=== PATIENT | female | born 1980 | race Caucasian/White ===

== ENCOUNTER 2017-06-13 08:30 | Emergency (ER) | payer OTHER ==
[2017-06-13 08:43] VITALS: BP 109/64
[2017-06-13] MEDS ORDERED: cefTRIAXone VIAL(*) 1,000 MG VIAL IM ONE (08:48)
[2017-06-13] MEDS ORDERED: Lidocaine 2% PF * 5 ML VIAL INJ ONE (08:48)
[2017-06-13] MEDS ORDERED: Tetan/Diph/Pertus SYR(Tdap)* 0.5 ML SYR(BOOSTRIX) use SYR IM ONE (08:49)
--- NOTE | 2017-06-13 08:55 | UC ---
Skin Complaint HPI - HPI Summary HPI Summary: She got a rope burn from a dog leash a few days ago and on the left there is now surrounding swelling and tenderness. she has a hx of abcess. no fever or chills or dm. - History of Current Complaint Chief Complaint: UCLowerExtremity Time Seen by Provider: 06/13/17 08:44 Stated Complaint: LEFT LEG IRRITATION Hx Obtained From: Patient Hx Last Menstrual Period: 05/29/17 Onset/Duration: Gradual Onset Skin Exposure Onset/Duration: Days Ago Onset Severity: Mild Current Severity: Moderate Location: Discrete, Other - posterior left calf. Character: Raised, Painful Aggravating: Touch Associated Signs & Symptoms: Positive: Tenderness. Negative: Drainage, Red Streaks - Allergy/Home Medications Allergies/Adverse Reactions: Allergies Allergy/AdvReac Type Severity Reaction Status Date / Time No Known Allergies Allergy Verified 06/13/17 08:34 Home Medications: Home Medications Cephalexin CAP* [Keflex CAP*] 500 mg PO TID 06/13/17 [History Confirmed 06/13/17 ] Review of Systems Skin: Other - tenderness around the wound. All Other Systems Reviewed And Are Negative: Yes PMH/Surg Hx/FS Hx/Imm Hx Previously Healthy: No - prior abcess. neg hx of mrsa. - Surgical History Surgical History: Yes Surgery Procedure, Year, and Place: 3 c-sections, esure implants, gallbladder removal - Family History Known Family History: Positive: Other - no known fh of skin infections. - Social History Alcohol Use: None Substance Use Type: None Smoking Status (MU): Heavy Every Day Tobacco Smoker Type: Cigarettes Amount Used/How Often: 1/2 pack per day Length of Time of Smoking/Using Tobacco: 24 yrs Household Exposure Type: Cigarettes Physical Exam Triage Information Reviewed: Yes Appearance: Well-Appearing, No Pain Distress, Well-Nourished Vital Signs: Initial Vital Signs Temp 98 F 06/13/17 08:37 Pulse 56 06/13/17 08:37 Resp 16 06/13/17 08:37 BP 109/64 06/13/17 08:37 Pulse Ox 99 06/13/17 08:37 Vital Signs Reviewed: Yes Eye Exam: Normal ENT Exam: Normal Neck exam: Normal Respiratory Exam: Normal Cardiovascular Exam: Normal Abdominal Exam: Normal Musculoskeletal: Positive: Edema @ - left posterior calf around the wound. the wound is a shallow eschar about 2inches by one inch. Neurological Exam: Normal Psychological Exam: Normal Skin Exam: Other - some surrounding pinkness around the wound. no streaking. no fluctuance. Course/Dx - Course Course Of Treatment: we had a long conversation regarding this localized cellulitis. Carmen agrees to have this looked again in the next 1-2 days back here. she was told that this may worsen in which case she may need to be admitted for IV antibiotics but we will aggressively manage with IM rocephin and po antibiotics. - Differential Diagnoses - Skin Complaint Differential Diagnoses: Abscess, Cellulitis - Diagnoses Provider Diagnoses: left posterior calf cellulitis. Discharge - Discharge Plan Condition: Good Disposition: HOME Prescriptions: Dicloxacillin CAP* [Dynapen CAP*] 500 mg PO QID #40 cap Patient Education Materials: Cellulitis (ED) Referrals: Erik Hernandes MD [Primary Care Provider] - 2 Days
[2017-06-13] MEDS ORDERED: Lidocaine 1% INJ* 10 MG/ML 30 ML SDV INJ ONE (08:57)
[2017-06-13] MEDS ORDERED: Lidocaine 1% MPF* 2 ML VIAL INJ ONE (09:10)
== END 2017-06-13 09:48 | disposition home or self-care (01) ==
LOC: UCCORT 08:30
DX: S80.812A Abrasion, left lower leg, initial encounter (principal); L03.116 Cellulitis of left lower limb; X58.XXXA Exposure to other specified factors, initial encounter; Y93.9 Activity, unspecified; Y92.9 Unspecified place or not applicable; F17.210 Nicotine dependence, cigarettes, uncomplicated; Z23 Encounter for immunization
CPT/HCPCS: 90471; 90715; 96372; 99212; G0463; J0696; J2001

== ENCOUNTER 2017-06-15 11:34 | Emergency (ER) | payer OTHER ==
[2017-06-15 12:11] VITALS: BP 121/69
--- NOTE | 2017-06-15 12:30 | UC ---
HPI Wound/Suture Re-check - HPI Summary HPI Summary: about 9 days ago sustained a lease burn to both lower legs seen her 2 days ago and started on antibiotics told to return for recheck no change - History Of Current Complaint Chief Complaint: UCSkin Stated Complaint: RECHECK LEG Time Seen by Provider: 06/15/17 11:56 Hx Obtained From: Patient Hx Last Menstrual Period: 05/28/17 Onset/Duration: Sudden Onset Severity: Moderate Pain Intensity: 4 Pain Scale Used: 0-10 Numeric - Allergies/Home Medications Allergies/Adverse Reactions: Allergies Allergy/AdvReac Type Severity Reaction Status Date / Time No Known Allergies Allergy Verified 06/15/17 12:03 PMH/Surg Hx/FS Hx/Imm Hx Previously Healthy: Yes Endocrine History: Hypothyroidism GI/ History: Gastroesophageal Reflux - Surgical History Surgical History: Yes Surgery Procedure, Year, and Place: 3 c-sections, esure implants, gallbladder removal - Family History Known Family History: Positive: Hypertension, Other - no known fh of skin infections. - Social History Alcohol Use: None Substance Use Type: None Smoking Status (MU): Heavy Every Day Tobacco Smoker Type: Cigarettes Amount Used/How Often: 1/2 pack per day Length of Time of Smoking/Using Tobacco: 24 yrs Household Exposure Type: Cigarettes - Immunization History Most Recent Tetanus Shot: 06/13/17 Review of Systems Constitutional: Negative Skin: Negative Eyes: Negative ENT: Negative Respiratory: Negative Cardiovascular: Negative Gastrointestinal: Negative Genitourinary: Negative Motor: Negative Neurovascular: Negative Musculoskeletal: Negative Neurological: Negative Psychological: Negative All Other Systems Reviewed And Are Negative: Yes Physical Exam Triage Information Reviewed: Yes Appearance: Well-Appearing, No Pain Distress, Well-Nourished Vital Signs: Initial Vital Signs Temp 97.8 F 06/15/17 12:05 Pulse 52 06/15/17 12:05 Resp 17 06/15/17 12:05 BP 121/69 06/15/17 12:05 Pulse Ox 99 06/15/17 12:05 Vital Signs Reviewed: Yes ENT: Positive: Hearing grossly normal. Negative: Nasal congestion, Nasal drainage Neck: Positive: Nontender, No Lymphadenopathy Respiratory: Positive: Lungs clear, Normal breath sounds, No respiratory distress, No accessory muscle use Cardiovascular: Positive: RRR, No Murmur Neurological: Positive: Alert Psychological Exam: Normal Skin Exam: Other - left lower ext eschar with surrounding narrow rim erthema no pronouced swelling no flutuance Course/Dx - Differential Dx - Laceration/Wound Provider Diagnoses: recheck friction hernandez/cellulitis Discharge - Discharge Plan Condition: Stable Disposition: HOME Prescriptions: Mupirocin 2% OINT* [Bactroban 2 % Oint*] 1 applic TOPICAL TID #1 tube Patient Education Materials: Cellulitis (ED) Referrals: Erik Hernandes MD [Primary Care Provider] - Additional Instructions: I suggest you soak your left foot in warm soapy water for 10-15 minutes 3x day gently dry apply bactroban to area that was burned by lease continue oral antibiotic recheck in 3 days sooner if symptoms worsen rest and elevate
== END 2017-06-15 12:38 | disposition home or self-care (01) ==
LOC: UCCORT 11:34
DX: T24.002D Burn of unspecified degree of unspecified site of left lower limb, except ankle and foot, subsequent encounter (principal); T24.001D Burn of unspecified degree of unspecified site of right lower limb, except ankle and foot, subsequent encounter; T79.8XXD Other early complications of trauma, subsequent encounter; X12.XXXD Contact with other hot fluids, subsequent encounter; E03.9 Hypothyroidism, unspecified; K21.9 Gastro-esophageal reflux disease without esophagitis; Z90.49 Acquired absence of other specified parts of digestive tract; F17.210 Nicotine dependence, cigarettes, uncomplicated
CPT/HCPCS: 99212; G0463

== ENCOUNTER 2017-06-18 09:31 | Emergency (ER) | payer OTHER ==
--- NOTE | 2017-06-18 11:52 | UC ---
Skin Complaint HPI - HPI Summary HPI Summary: 37 y/o female presents to the urgent care c/o her wound in her LF ankle is not healing. Pt states she got a the wound with the rope of her dog's leash about 1 week ago. She was seen here at the urgent care on 06/13/2017 and 06/15/2017. She Rx Keflex and dicloxacillin. She just finished the antibiotic and her wound still red, painful and swollen with some yellowish drainage. PT denies red streaks, fever, SOB, chest pain, N/V/d. - History of Current Complaint Chief Complaint: UCWounds Time Seen by Provider: 06/18/17 11:30 Stated Complaint: LEFT ANKLE PAIN Hx Obtained From: Patient Hx Last Menstrual Period: week may ?: Yes Onset/Duration: Gradual Onset, Lasting Days, Still Present Skin Exposure Onset/Duration: Weeks Ago Timing: Constant Onset Severity: Severe Current Severity: Moderate Pain Intensity: 4 Pain Scale Used: 0-10 Numeric Location: Discrete - wound above LF ankle Character: Swelling, Pain, Redness Aggravating: Touch, Other - standing long period of time Alleviating: OTC Meds Associated Signs & Symptoms: Positive: Tenderness. Negative: Nausea, Vomiting, Numbness, Fever, Chills, Drainage, Red Streaks, Joint Swelling Related History: Trauma - with a dog rope - Allergy/Home Medications Allergies/Adverse Reactions: Allergies Allergy/AdvReac Type Severity Reaction Status Date / Time No Known Allergies Allergy Verified 06/18/17 09:48 Review of Systems Constitutional: Negative Skin: Rash - left ankle wound w/ redness and yellowish drainage, not healing Eyes: Negative ENT: Negative Respiratory: Negative Cardiovascular: Negative Gastrointestinal: Negative Genitourinary: Negative Motor: Negative Neurovascular: Negative Musculoskeletal: Negative Neurological: Negative Psychological: Negative All Other Systems Reviewed And Are Negative: Yes PMH/Surg Hx/FS Hx/Imm Hx Previously Healthy: Yes Endocrine History: Hypothyroidism - Surgical History Surgical History: Yes Surgery Procedure, Year, and Place: 3 c-sections, esure implants, gallbladder removal - Family History Known Family History: Positive: Hypertension, Diabetes - Social History Occupation: Employed Full-time Lives: With Family Alcohol Use: None Substance Use Type: None Smoking Status (MU): Heavy Every Day Tobacco Smoker Type: Cigarettes Amount Used/How Often: 1/2 pack per day Length of Time of Smoking/Using Tobacco: 24 yrs Household Exposure Type: Cigarettes - Immunization History Most Recent Tetanus Shot: 06/13/17 Physical Exam Triage Information Reviewed: Yes Appearance: Well-Appearing, No Pain Distress, Well-Nourished, Obese Vital Signs: Initial Vital Signs Temp 97.6 F 06/18/17 09:49 Pulse 58 06/18/17 09:49 Resp 16 06/18/17 09:49 BP 100/67 06/18/17 09:49 Pulse Ox 99 06/18/17 09:49 Vital Signs Reviewed: Yes Eye Exam: Normal Eyes: Positive: Conjunctiva Clear - PERRLA, EOMI, ENT Exam: Normal ENT: Positive: Normal ENT inspection, Hearing grossly normal, Pharynx normal, TMs normal Dental Exam: Normal Neck exam: Normal Neck: Positive: Supple, Nontender, No Lymphadenopathy Respiratory Exam: Normal Respiratory: Positive: Chest non-tender, Lungs clear, Normal breath sounds, No respiratory distress Cardiovascular Exam: Normal Cardiovascular: Positive: RRR, No Murmur, Pulses Normal, Brisk Capillary Refill Abdominal Exam: Normal Abdomen Description: Positive: Nontender, No Organomegaly, Soft. Negative: CVA Tenderness (R), CVA Tenderness (L) Bowel Sounds: Positive: Present Musculoskeletal Exam: Normal Musculoskeletal: Positive: Strength Intact, ROM Intact, No Edema Neurological Exam: Normal Psychological Exam: Normal Skin: Positive: significant lesion(s) - lf lower extremity with an eschar above the posterior aspect of LF ankle. , mild erythema around and mild yellosish drainage, tender to palpation.FROm for FL ankle, positive pulses, sensation intact and brisk capillary refill. RT lower leg extremity wound healing well Course/Dx - Course Course Of Treatment: 37 y/o female presents to the urgent care c/o her wound in her LF ankle is not healing. Pt states she got a the wound with the rope of her dog's leash about 1 week ago. She was seen here at the urgent care on 2016 and 06/15/2017. She Rx Keflex and dicloxacillin. She just finished the antibiotic and her wound still red, painful and swollen with some yellowish drainage. PT denies red streaks, fever, SOB, chest pain, N/V/d.HX obtained. PT' s wound still draining purulant discharge. Wound sample taken and sent to lab for wound culture. Pt Rx Bactrim PO and Pt advised to keep wound clean and dry and continue placing Mupurocin topical cream. keep leg elevated and avoid stading for long eriods of time. Pt understood and agreed. Left the clinic ambulating. - Differential Diagnoses - Skin Complaint Differential Diagnoses: Cellulitis, Local Allergic Reaction, Lymphadenitis, MRSA , Urticaria - Diagnoses Provider Diagnoses: 1- Left lower leg with cellulitis Discharge - Discharge Plan Condition: Stable Disposition: HOME Prescriptions: Sulfamethox/Trimethoprim DS* [Bactrim DS 800/160 TAB*] 1 tab PO BID #20 tab Patient Education Materials: Cellulitis (ED), Acute Wound Care (ED) Referrals: Erik Hernandes MD [Primary Care Provider] - If Needed Additional Instructions: 1- Please take full course of antibiotic to avoid resistance. Continue taking Ibuprofen PO q6-8hrs to alleviate swelling. Elevate your leg at night time. 2- Wound culture sent to lab if anything abnormal, you will receive a call from us 3- If symptoms do not improve or worsen please f/u with your PCP or return to the urgent care for further treatment. .
[2017-06-18 11:58] VITALS: BP 111/62
== END 2017-06-18 11:58 | disposition home or self-care (01) ==
LOC: UCCORT 09:31
DX: S91.002S Unspecified open wound, left ankle, sequela (principal); L03.116 Cellulitis of left lower limb; X58.XXXS Exposure to other specified factors, sequela; E03.9 Hypothyroidism, unspecified; Z90.49 Acquired absence of other specified parts of digestive tract; E66.9 Obesity, unspecified; F17.210 Nicotine dependence, cigarettes, uncomplicated
CPT/HCPCS: 87070; 87205; 99212; G0463

== ENCOUNTER 2019-02-22 20:55 | Emergency (ER) | payer OTHER ==
[2019-02-22 21:12] VITALS: BP 128/69
--- NOTE | 2019-02-22 21:35 | UC ---
Back Pain HPI - HPI Summary HPI Summary: 38 y/o female presents to the urgent care c/o slipped and fell down stairs at home 02/17/19, injured tailbone. Pt though pain was going to improved by taking Ibuprofen PO 600mg, but it worsen yesterday. Pain is 8/10 sharp specially at the tailbone when sitting or bending. She has has a normal BM and urinating well. Pt reports Hx of DDD. Last does of Ibuprofen PO taken about 3 hrs ago. Pt denies fever, SOB, chest pain, calf pain, saddle anesthesia, urinary or fecal incontinence, flank pain, urinary symptoms, numbness or tingling sensation over the lower extremities, abdominal pain, N/V/D. She has mild B/l lower back pain w / muscle spasm. LMP: 01/27/2019 w/ regular menstrual cycles and has Essure implant for many years. - History of Current Complaint Chief Complaint: UCGeneralIllness Stated Complaint: TAILBONE INJURY Time Seen by Provider: 02/22/19 21:34 Hx Obtained From: Patient Hx Last Menstrual Period: 01/27/19 has essure ?: No - has Essure implants Onset/Duration: Gradual Onset, Lasting Days - 6 days ago she fell on her back an injured her tail bone, pain since then, Still Present, Worse Since - yesterday Timing: Constant, Lasting Days - 6 days Severity Initially: Moderate Severity Currently: Moderate Pain Intensity: 8 Pain Scale Used: 0-10 Numeric Back Pain: Is Discrete @ - lower bacn and tail bone pain Character: Sharp, Spasmodic Aggravating Factor(s): Movement, Bending, Other - sitting Alleviating Factor(s): Rest, OTC Meds - Ibuprofen 600mg PO Associated Signs And Symptoms: Positive: Negative. Negative: Swelling, Redness , Bruising, Weakness, Numbness, Tingling, Abdominal Pain, Flank Pain, Bladder Incontinence, Bowel Incontinence, Weight Loss, Pain with Weight Bearing - Risk Factors AAA Risk Factors: Negative TAD Risk Factors: Negative Cauda Equina Risk Factors: Negative Epidural Abscess Risk Factors: Negative - Allergies/Home Medications Allergies/Adverse Reactions: Allergies Allergy/AdvReac Type Severity Reaction Status Date / Time No Known Allergies Allergy Verified 02/22/19 21:12 PMH/Surg Hx/FS Hx/Imm Hx Previously Healthy: Yes Endocrine History: Hypothyroidism GI/ History: Gastroesophageal Reflux Other GI/ History: Gastroperesis Other Neurological History: Degenerative Disc disease - Surgical History Surgical History: Yes Surgery Procedure, Year, and Place: 3 c-sections, esure implants, gallbladder removal - Family History Known Family History: Positive: Hypertension, Diabetes, Other - no known fh of skin infections. - Social History Occupation: Employed Full-time Lives: With Family Alcohol Use: None Substance Use Type: None Smoking Status (MU): Heavy Every Day Tobacco Smoker Type: Cigarettes Amount Used/How Often: 1/2 pack per day Length of Time of Smoking/Using Tobacco: 24 yrs Household Exposure Type: Cigarettes - Immunization History Most Recent Tetanus Shot: 06/13/17 Review of Systems All Other Systems Reviewed And Are Negative: Yes Constitutional: Positive: Negative Skin: Positive: Negative Eyes: Positive: Negative ENT: Positive: Negative Respiratory: Positive: Negative Cardiovascular: Positive: Negative Gastrointestinal: Positive: Negative Genitourinary: Positive: Negative Motor: Positive: Negative Neurovascular: Positive: Negative Musculoskeletal: Positive: Decreased ROM - lower back, Other: - lower back pain and tail bone pain s/p fall injury Neurological: Positive: Negative Psychological: Positive: Negative Is Patient Immunocompromised?: No Physical Exam - Summary Physical Exam Summary: Vital Signs Reviewed: Yes Appearance: Well-Appearing, Well-Nourished, obese female sitting in the examining table w/o any apparent distress. Eyes: Positive: Conjunctiva Clear - PERRLA, EOMI. ENT: Positive: Normal ENT inspection, Hearing grossly normal, Pharynx normal, TMs normal, Uvula midline Neck: Positive: Supple, Nontender, No Lymphadenopathy Respiratory: Positive: Chest non-tender, Lungs clear, Normal breath sounds, No respiratory distress Cardiovascular: Positive: RRR, No Murmur, Pulses Normal, Brisk Capillary Refill Abdomen Description: Positive: Nontender, No Organomegaly, Soft. Negative: CVA Tenderness (R), CVA Tenderness (L) Bowel Sounds: Positive: Present Musculoskeletal: Positive: Strength Intact, Other: - BACK: Patient walked into the urgent care room with symmetric ambulation, No signs of limping, antalgic, able to bear weight. No signs of trauma, No masses palpated. Point tenderness at the level of L5-S1 and coccyx, No ecchymosis or soft tissue swelling observed , B/L paraspinal musccle tenderness and spasm at the same level. No CVAT, no flank ecchymosis . No sacroiliac notch tenderness, No saddle anesthesia.ROM: limited due to pain, Straight Leg Raise: unable to performe due to pain. Patellar reflexes: brisk, symmetric Muscle strength lower extremities. Dorsiflexion/ plantar flexion of ankles. Heel/ toe walk. Lower extremities: Femoral, popliteal, posterior tibial, and dorsalis pedis pulses WNL. Pt refuse rectal exam Neurological: Positive: Alert, Muscle Tone Normal Psychological Exam: Normal Skin Exam: Normal Triage Information Reviewed: Yes Vital Signs: Initial Vital Signs Temp 97.9 F 02/22/19 21:09 Pulse 70 02/22/19 21:09 Resp 16 02/22/19 21:09 BP 128/69 02/22/19 21:09 Pulse Ox 99 02/22/19 21:09 Back Pain Course/Dx - Course Course Of Treatment: 38 y/o female presents to the urgent care c/o slipped and fell down stairs at home 02/17/19, injured tailbone. Pt though pain was going to improved by taking Ibuprofen PO 600mg, but it worsen yesterday. Pain is 8/10 sharp specially at the tailbone when sitting or bending. She has has a normal BM and urinating well. Pt reports Hx of DDD. Last does of Ibuprofen PO taken about 3 hrs ago. Pt denies fever, SOB, chest pain, calf pain, saddle anesthesia, urinary or fecal incontinence, flank pain, urinary symptoms, numbness or tingling sensation over the lower extremities, abdominal pain, N/V/D. She has mild B/l lower back pain w / muscle spasm. LMP: 01/27/2019 w/ regular menstrual cycles and has Essure implant for many years. Hx obtained. Pt w/ Point tenderness at the level of L5- S1 and coccyx, No ecchymosis or soft tissue swelling observed , B/L paraspinal muscle tenderness and spasm at the same level on examination. Pt w/ Implant and LMP:01/27/2019. Lumbosacral X-ray ordered, Impression: No acute osseous injury observed as per Dr morgan. However we can't r/o any hairline or stress fracture. Final radiology reports still pending. Pt will be notified tomorrow of any abnormality. Pt dispensed Flexeril PO 1 tab to take home tonight. Pt Rx Ibuprofen, , flexeril PO and Medrol dose coral as directed below. Pt advised to use a donut shape cushion to sit and for comfort since she is traveling in 3 days. Patient was instructed to the f/u pipe orthopedic Dr Wong or her PCP in 1 week if symptoms do not improve or worsen. Patient understands and agrees. Patient is able to ambulate freely w/o aid or limp. Plan of care was discussed with the patient and patient understands and agrees. All questions were answered at patient satisfaction. Pt left clinic hemodynamically stable. - Differential Dx/Diagnosis Differential Diagnosis/HQI/PQRI: Fracture, Strain, Sprain, Other - coccys injury Provider Diagnosis: Coccyx pain, Low back strain, Back muscle spasm Discharge - Sign-Out/Discharge Documenting (check all that apply): Patient Departure All imaging exams completed and their final reports reviewed: No - Discharge Plan Condition: Stable Disposition: HOME Prescriptions: Cyclobenzaprine TAB* [Flexeril 10 MG TAB*] 10 mg PO TID PRN #20 tab PRN Reason: Spasms - Back Ibuprofen TAB* [Motrin TAB* 800 MG] 800 mg PO Q6H PRN #30 tab PRN Reason: back pain methylPREDNISolone [Medrol Dosepak 4 MG*] 4 mg PO .SEE CORAL INSTRUCTION #1 coral Patient Education Materials: Coccyx Injury (ED), Low Back Strain (ED) Referrals: Erik Hernandes MD [Primary Care Provider] - 3 Days Jermaine Wong MD [Medical Doctor] - 1 Week Additional Instructions: 1- Please take Ibuprofen PO q6-8hrs as directed after meals for pain adn swelling. alternate w/ Tylenol 2- Take Flexeril PO as directed for muscle spasm. Please do not drive while taking the medication. first dose given tonight to take home 3- Use a donut-shaep chusion wehn you sit for omfort. Avoid strenuous exercise or heavy lifting. 4- Please follow up with Orthopedic Dr Wong or your PCP in 1 week if not improvement of symptoms, for further management. 5- Final radiology reports still pending, you will be notified of any abnormality tomorrow - Billing Disposition and Condition Condition: STABLE Disposition: Home
[2019-02-22] MEDS ORDERED: Cyclobenzaprine TAB* 10 MG PO ONE (22:07)
--- NOTE | 2019-02-23 14:39 | UC ---
- Progress Note Progress Note: Final read reviewed and neg. Course/Dx - Diagnoses Provider Diagnoses: Coccyx pain, Low back strain, Back muscle spasm Discharge - Sign-Out/Discharge Documenting (check all that apply): Patient Departure All imaging exams completed and their final reports reviewed: Yes - Discharge Plan Condition: Stable Disposition: HOME Prescriptions: Cyclobenzaprine TAB* [Flexeril 10 MG TAB*] 10 mg PO TID PRN #20 tab PRN Reason: Spasms - Back Ibuprofen TAB* [Motrin TAB* 800 MG] 800 mg PO Q6H PRN #30 tab PRN Reason: back pain methylPREDNISolone [Medrol Dosepak 4 MG*] 4 mg PO .SEE CORAL INSTRUCTION #1 coral Patient Education Materials: Coccyx Injury (ED), Low Back Strain (ED) Referrals: Jermaine Wong MD [Medical Doctor] - 1 Week Erik Hernandes MD [Primary Care Provider] - 3 Days Additional Instructions: 1- Please take Ibuprofen PO q6-8hrs as directed after meals for pain adn swelling. alternate w/ Tylenol 2- Take Flexeril PO as directed for muscle spasm. Please do not drive while taking the medication. first dose given tonight to take home 3- Use a donut-shaep chusion wehn you sit for omfort. Avoid strenuous exercise or heavy lifting. 4- Please follow up with Orthopedic Dr Wong or your PCP in 1 week if not improvement of symptoms, for further management. 5- Final radiology reports still pending, you will be notified of any abnormality tomorrow - Billing Disposition and Condition Condition: STABLE Disposition: Home
== END 2019-02-22 22:22 | disposition home or self-care (01) ==
LOC: UCCORT 20:55
DX: M53.3 Sacrococcygeal disorders, not elsewhere classified (principal); S39.012A Strain of muscle, fascia and tendon of lower back, initial encounter; M62.830 Muscle spasm of back; F17.210 Nicotine dependence, cigarettes, uncomplicated; W10.9XXA Fall (on) (from) unspecified stairs and steps, initial encounter; Y92.009 Unspecified place in unspecified non-institutional (private) residence as the place of occurrence of the external cause
CPT/HCPCS: 72110; 99212; A9270-GY; G0463